=== PATIENT | female | born 2000 | race Caucasian/White ===

== ENCOUNTER 2018-09-17 23:50 | Outpatient (CLI) | payer OTHER ==
[2018-09-18] MEDS: TERBUTALINE 1 MG/ML INJ SC (01:52)
== END 2018-09-18 03:20 | disposition home or self-care (01) ==
LOC: L-D 23:50 → OBT 23:50
DX: O36.8130 Decreased fetal movements, third trimester, not applicable or unspecified (principal); O47.03 False labor before 37 completed weeks of gestation, third trimester; Z3A.34 34 weeks gestation of pregnancy
CPT/HCPCS: 76818; 96372

== ENCOUNTER 2018-10-11 14:12 | Outpatient (CLI) | payer OTHER | END 2018-10-11 16:00 | disposition home or self-care (01) | LOC: OBT 14:12 → L-D 14:12 → OBT 16:00 | DX: O36.8130 Decreased fetal movements, third trimester, not applicable or unspecified (principal); Z3A.37 37 weeks gestation of pregnancy | CPT/HCPCS: 76818 ==

== ENCOUNTER 2018-10-21 08:13 | Inpatient (IN) | payer OTHER ==
[~2018-10-21 08:13] MED LIST: CEFAZOLIN 1 GM INJ; GLYCOPYRROLATE 0.4 MG INJ; METOCLOPRAMIDE 10 MG INJ; MIDAZOLAM 1 MG/ML 2 ML INJ; ONDANSETRON 4 MG INJ; OXYTOCIN 10 UNIT INJ; OXYTOCIN 30 UNITS/LR 500 ML BAG IV; morphine SULFATE/PF (10 MG/10 ML) INJ
[2018-10-21] MEDS ORDERED: KETOROLAC 30 MG INJ (09:37)
[2018-10-21] MEDS ORDERED: MISOPROSTOL 200 MCG TAB PR ×2 (10:00→10:30)
[2018-10-21] MEDS ORDERED: NACL 0.9% 3 ML SYG IV (10:00)
[2018-10-21] MEDS ORDERED: METHYLERGONOVINE 0.2 MG INJ IM ×2 (10:00→10:30)
[2018-10-21] MEDS ORDERED: OXYTOCIN 30 UNITS/LR 500 ML IV ×3 (10:00→10:30)
[2018-10-21] MEDS ORDERED: CARBOPROST 250 MCG INJ IM ×2 (10:00→10:30)
[2018-10-21] MEDS ORDERED: NALBUPHINE HCL (10 MG/1 ML) INJ IV (10:30)
[2018-10-21] MEDS ORDERED: CEFAZOLIN 2 GM/50 ML (PMX) 50 ML IVPB (10:30)
[2018-10-21] MEDS ORDERED: DIPHENHYDRAMINE 50 MG INJ IV ×2 (10:30)
[2018-10-21] MEDS ORDERED: NALOXONE (0.4 MG/ML) INJ IV (10:30)
[2018-10-21] MEDS ORDERED: MEPERIDINE 25 MG INJ IV (10:30)
[2018-10-21] MEDS ORDERED: ZOLPIDEM 5 MG TAB PO (10:30)
[2018-10-21] MEDS ORDERED: MIDAZOLAM 1 MG/ML 2 ML INJ IV (10:30)
[2018-10-21] MEDS ORDERED: ONDANSETRON 4 MG INJ IV (10:30)
[2018-10-21] MEDS: LACTATED RINGER'S 1,000 ML IV ×2 (11:11→16:00)
[2018-10-21] MEDS: OXYTOCIN 30 UNITS/LR 500 ML IV (11:15)
[2018-10-21 11:48] LABS: ADD MAN DIFF? NO
[2018-10-21 11:56] LABS: WHITE BLOOD COUNT 9.2 10^3/ul (4.8-10.8)
[2018-10-21 11:56] LABS: BASOPHILS % 0.2 % (0.0-2.0); EOSINOPHILS % 0.3 % (0.0-7.0); HEMATOCRIT 33.5 % (37.0-47.0); HEMOGLOBIN 10.9 g/dl (12.0-16.0); LYMPHOCYTES # 1.1 10^3/ul (0.8-2.9); LYMPHOCYTES % 12.4 % (18.0-55.0); MEAN CORPUSCULAR HEMOGLOBIN 28.7 pg (29.0-33.0); MEAN CORPUSCULAR HGB CONC 32.5 g/dl (32.0-37.0); MEAN CORPUSCULAR VOLUME 88.2 fl (72.0-104.0); MEAN PLATELET VOLUME 11.9 fl (7.4-10.4); MONOCYTE # 0.6 10^3/ul (0.3-0.9); MONOCYTES % 6.4 % (0.0-13.0); NEUTROPHIL # 7.3 10^3/ul (1.6-7.5); PLATELET COUNT 131 10^3/UL (140-415); RED CELL DISTRIBUTION WIDTH 12.6 % (11.5-14.5)
[2018-10-21] MEDS: IBUPROFEN 600 MG TAB PO ×2 (12:00→17:56)
[2018-10-21 12:12] LABS: INR 0.91; PROTIME 12.4 Sec (11.9-14.9)
[2018-10-21 12:13] LABS: PARTIAL THROMBOPLASTIN TIME 28.2 Sec (23.0-35.0)
[2018-10-21 12:42] LABS: HEPATITIS B SURFACE ANTIGEN NEGATIVE (NEGATIVE)
[2018-10-21 12:45] LABS: BARBITURATES Negative (NEGATIVE); CANNABINOIDS Negative (NEGATIVE); COCAINE Negative (NEGATIVE); OPIATES Negative (NEGATIVE)
[2018-10-21 12:47] LABS: BENZODIAZEPINES Positive (NEGATIVE)
[2018-10-21 13:35] LABS: AMPHETAMINE/METHAMPHETAMINE Negative (NEGATIVE)
[2018-10-21] MEDS: KETOROLAC 30 MG INJ IV (14:19)
[2018-10-21] MEDS: CEFAZOLIN 2 GM/50 ML (PMX) 50 ML IVPB (17:55)
[2018-10-21 19:50] LABS: RAPID PLASMA REAGIN NONREACTIVE (NR)
[2018-10-21] MEDS: SENNA/DOCUSATE NA (8.6MG/50MG) TAB PO (21:00)
[2018-10-21] MEDS: HYDROmorphONE 0.5 MG/0.5 ML SYG IV (21:01)
[2018-10-21] MEDS: ONDANSETRON 4 MG INJ IV (21:01)
[2018-10-22] MEDS: LACTATED RINGER'S 1,000 ML IV (00:32)
[2018-10-22] MEDS: HYDROmorphONE 0.5 MG/0.5 ML SYG IV ×3 (00:33→08:26)
[2018-10-22] MEDS: CEFAZOLIN 2 GM/50 ML (PMX) 50 ML IVPB ×2 (00:41→08:40)
[2018-10-22] MEDS: IBUPROFEN 600 MG TAB PO ×5 (05:50→23:57)
[2018-10-22 06:34] LABS: ADD MAN DIFF? NO
[2018-10-22 06:48] LABS: BASOPHILS % 0.3 % (0.0-2.0); EOSINOPHILS # 0.1 10^3/ul (0.0-0.5); EOSINOPHILS % 0.6 % (0.0-7.0); HEMATOCRIT 27.9 % (37.0-47.0); HEMOGLOBIN 9.3 g/dl (12.0-16.0); LYMPHOCYTES # 1.2 10^3/ul (0.8-2.9); MEAN CORPUSCULAR HEMOGLOBIN 29.7 pg (29.0-33.0); MEAN CORPUSCULAR HGB CONC 33.3 g/dl (32.0-37.0); MEAN CORPUSCULAR VOLUME 89.1 fl (72.0-104.0); MEAN PLATELET VOLUME 11.8 fl (7.4-10.4); MONOCYTE # 0.6 10^3/ul (0.3-0.9); NEUTROPHIL # 5.9 10^3/ul (1.6-7.5); NEUTROPHILS % 75.7 % (30.0-74.0); PLATELET COUNT 107 10^3/UL (140-415); RED BLOOD COUNT 3.13 10^6/ul (4.20-5.40); RED CELL DISTRIBUTION WIDTH 12.7 % (11.5-14.5)
[2018-10-22 06:48] LABS: WHITE BLOOD COUNT 7.9 10^3/ul (4.8-10.8)
[2018-10-22] MEDS: SENNA/DOCUSATE NA (8.6MG/50MG) TAB PO ×2 (08:25→21:41)
[2018-10-22] MEDS: OXYCODONE/ACETAMINOPHEN (5/325) TAB PO ×4 (10:00→23:19)
[2018-10-23] MEDS: IBUPROFEN 600 MG TAB PO ×4 (05:50→23:44)
[2018-10-23] MEDS: SENNA/DOCUSATE NA (8.6MG/50MG) TAB PO ×2 (08:15→21:10)
[2018-10-23] MEDS: OXYCODONE/ACETAMINOPHEN (5/325) TAB PO ×3 (08:16→21:18)
[2018-10-24] MEDS: OXYCODONE/ACETAMINOPHEN (5/325) TAB PO ×3 (02:43→14:04)
[2018-10-24] MEDS: IBUPROFEN 600 MG TAB PO ×2 (06:00→12:29)
[2018-10-24] MEDS: DIPHTH/TET/ACEL PERTUSS (ADULT) 0.5 ML VIAL IM* (09:30)
[2018-10-24] MEDS: SENNA/DOCUSATE NA (8.6MG/50MG) TAB PO (09:38)
== END 2018-10-24 17:00 | disposition home or self-care (01) | DRG 788 ==
LOC: L-D 08:13 → PP1 14:04
PROC: 10D00Z1 Extraction of Products of Conception, Low, Open Approach (ICD-10-PCS; principal; 2018-10-21)
DX: O76 Abnormality in fetal heart rate and rhythm complicating labor and delivery (principal); O77.0 Labor and delivery complicated by meconium in amniotic fluid; O13.4 Gestational [pregnancy-induced] hypertension without significant proteinuria, complicating childbirth; Z3A.40 40 weeks gestation of pregnancy; Z37.0 Single live birth
CPT/HCPCS: 80307; 85025; 85610; 85730; 86592; 86850; 86900; 86901; 87340; 90686; 99464